=== PATIENT | male | born 1950 | race Caucasian/White ===

== ENCOUNTER → 2017-11-15 10:50 | Outpatient (CLI) | payer MEDICARE, SELFPAY ==
--- NOTE | 2017-11-15 16:58 | STRESSREP ---
Stress Test Report Date: 11/15/2017 Procedure: Exercise tolerance test Indications: CAD; CABG Consent: Per the patient Procedure: The patient exercised on a Philippe protocol for 10 minutes and 30 seconds completing Stage III and 1 minute and 30 seconds of Stage IV achieving a peak heart rate of 160 bpm (103 % predicted maximal heart rate) with a peak blood pressure 200/82 mmHg and a peak MET capacity of approximately 12 MET's. The baseline ECG demonstrated normal sinus rhythm; poor R-wave progression; anterior lateral [place] of indeterminate age. The peak exercise ECG demonstrated approximately [address] segment depression in leads II, III, aVF, and V5 through V6 with gradual resolution towards baseline in recovery. There were rare PVCs during exercise and occasional PACs and rare PVCs during recovery. The functional capacity was considered good. The patient had no complaint of chest discomfort during exercise or recovery. The examination was discontinued secondary to shortness of breath/dyspnea. Impression: 1. Technically adequate (percent predicted maximal heart rate greater than 85%) exercise tolerance test 2. Peak exercise ECG with proximally [address] segment depression in leads II, III, aVF, and V5 through V6 with gradual resolution towards baseline in recovery 3. There were rare PVCs during exercise and occasional PACs and rare PVCs during recovery This note was generated with [employer] software. It may contain incorrect words, spelling, and punctuation that were not noted in checking the note before signing.
--- NOTE | 2017-11-15 17:02 | STRESSREP_ITS ---
Stress Test Report Date: 11/15/2017 Procedure: Exercise tolerance test Indications: CAD; CABG Consent: Per the patient Procedure: The patient exercised on a Philippe protocol for 10 minutes and 30 seconds completing Stage III and 1 minute and 30 seconds of Stage IV achieving a peak heart rate of 160 bpm (103 % predicted maximal heart rate) with a peak blood pressure 200/82 mmHg and a peak MET capacity of approximately 12 MET's. The baseline ECG demonstrated normal sinus rhythm; poor R-wave progression; anterior lateral [place] of indeterminate age. The peak exercise ECG demonstrated approximately [address] segment depression in leads II, III, aVF, and V5 through V6 with gradual resolution towards baseline in recovery. There were rare PVCs during exercise and occasional PACs and rare PVCs during recovery. The functional capacity was considered good. The patient had no complaint of chest discomfort during exercise or recovery. The examination was discontinued secondary to shortness of breath/dyspnea. Impression: 1. Technically adequate (percent predicted maximal heart rate greater than 85% ) exercise tolerance test 2. Peak exercise ECG with proximally [address] segment depression in leads II, III, aVF, and V5 through V6 with gradual resolution towards baseline in recovery 3. There were rare PVCs during exercise and occasional PACs and rare PVCs during recovery This note was generated with [employer] software. It may contain incorrect words, spelling, and punctuation that were not noted in checking the note before signing.
== END ==
PROVIDERS: Family Provider Family Medicine; PCP Family Medicine; Visit Provider Internal Medicine Cardiovascular Disease
DX: I25.10 Atherosclerotic heart disease of native coronary artery without angina pectoris (principal); Z95.1 Presence of aortocoronary bypass graft; I10 Essential (primary) hypertension; I25.2 Old myocardial infarction
CPT/HCPCS: 93017